=== PATIENT | female | born 1980 | race American Indian/Alaskan Native ===

== ENCOUNTER 2017-10-04 14:53 | Inpatient (IN) | payer MEDICARE, MEDICAID ==
[2017-10-04 15:10] VITALS: BMI 28.1
--- NOTE | 2017-10-04 15:32 | ED PDOC ---
Arrival/HPI - General Chief Complaint: Abdominal Pain Time Seen by Provider: 10/04/17 15:01 - History of Present Illness Narrative History of Present Illness (Text): 36 year old F c Past medical history cholecystectomy 2014, depression, bipolar disorder, schizophrenia p/w abdominal pain x 5 days. Associated with NBNB vomiting. Went to [facility] Emergency department yesterday, received IVF and pepcid. [place] well afterwards, discharged home, woke up this morning with same. Also reports diarrhea that resolved 2 days ago. 15 pound weight loss. Also reports chills, lightheadedness. No imaging performed. Denies fever, dyspnea, chest pain , cough. Past Medical History - Cardiac Hx Cardiac Disorders: No - Pulmonary Hx Respiratory Disorders: No - Neurological Hx Neurological Disorder: No - HEENT Hx HEENT Disorder: No - Renal Hx Renal Disorder: No - Endocrine/Metabolic Hx Endocrine Disorders: No - Hematological/Oncological Hx Blood Disorders: No - Integumentary Hx Dermatological Disorder: No - Musculoskeletal/Rheumatological Hx Musculoskeletal Disorders: No - Gastrointestinal Hx Gastrointestinal Disorders: No - Genitourinary/Gynecological Hx Genitourinary Disorders: No - Psychiatric Hx Psychophysiologic Disorder: Yes Hx Anxiety: Yes Hx Depression: Yes Hx Substance Use: No - Suicidal Assessment Feels Threatened In Home Enviroment: No Family/Social History Family/Social History: No Known Family HX Smoking Status: Never Smoked Hx Alcohol Use: No Hx Substance Use: No Allergies/Home Meds Allergies/Adverse Reactions: Allergies penicillin G Allergy (Severe, Verified 10/04/17 15:23) ANAPHYLAXIS Review of Systems - Physician Review All systems were reviewed & negative as marked: Yes - Review of Systems Constitutional: absent: Fevers Cardiovascular: absent: Chest Pain Physical Exam - Physical Exam Narrative Physical Exam (Text): Constitutional: No acute distress. Head: Normocephalic. Atraumatic. Eyes: PERRL. ENT: Moist mucous membranes. Neck: Supple. Cardiovascular: Regular rate. Chest: No tenderness. Respiratory: Clear to auscultation bilaterally. GI: BS present. Soft. Diffuse tenderness. No guarding or rebound. Nondistended. Back: No CVA tenderness. Musculoskeletal: No tenderness or swelling of extremities. Skin: No rash. Neurologic: Alert, no focal deficit. Vital Signs Temp Pulse Resp BP Pulse Ox 10/04/17 16:54 90 18 149/89 100 10/04/17 15:14 98.3 F 78 18 155/112 H 98 Medical Decision Making ED Course and Treatment: Differential includes appendicitis, colitis, gastritis, pancreatitis, UTI, gastroenteritis. CBC/CMP/lipase, Urinalysis, test, CT abdomen/pelvis. IVF, Pepcid, Maalox, Zofran. Labs unremarkable. Patient continues to have vomiting in Emergency department despite IV Zofran. Dr. Rankin accepts patient to observation under Dr. duncan's service. - Lab Interpretations Lab Results: 10/04/17 15:46 10/04/17 15:46 Lab Results 10/04/17 16:40: Urine Color Yellow, Urine Appearance Cloudy, Urine pH 6.0, Ur Specific [place] 1.025, Urine Protein 30 H, Urine Glucose (UA) Negative, Urine Ketones >=80, Urine Blood Large H, Urine Nitrate Negative, Urine Bilirubin Small H, Urine Urobilinogen 0.2, Ur Leukocyte Esterase Trace H, Urine RBC Tntc, Urine WBC 5 - 10, Ur Epithelial Cells 6 - 8, Urine Bacteria Mod, Urine Other Fiber, Urine HCG, Qual Negative 10/04/17 15:46: Sodium 141, Potassium 3.3 L, Chloride 100, Carbon Dioxide 26, Anion Gap 18, BUN 16, Creatinine 0.8, Est GFR ( Amer) > 60, Est GFR (Non- Af Amer) > 60, Random Glucose 97, Calcium 9.5, Total Bilirubin 0.7, AST 32, ALT 37, Alkaline Phosphatase 82, Total Protein 8.6 H, Albumin 4.6, Globulin 4.0, Albumin/Globulin Ratio 1.2, Lipase 108 10/04/17 15:46: WBC 4.8, RBC 4.47, Hgb 14.3, Hct 39.9, MCV 89.3, MCH 32.0, MCHC 35.8, RDW 11.4 L, Plt Count 294, MPV 9.4, Gran % 57.9, Lymph % (Auto) 35.2 H, [place] % (Auto) 6.3 H, Eos % (Auto) 0.2 L, Baso % (Auto) 0.4, Gran # 2.76, Lymph # (Auto) 1.7, [place] # (Auto) 0.3, Eos # (Auto) 0.0, Baso # (Auto) 0.02 - RAD Interpretation Radiology Orders: 10/04/17 15:34 ABD & PELVIS IV CONTRAST ONLY [CT] Stat - Medication Orders Current Medication Orders: Sodium Chloride (Sodium Chloride 0.9%) 1,000 mls @ 999 mls/hr IV .Q1H1M STA Stop: 10/04/17 19:45 Discontinued Medications Al Hydrox/Mg Hydrox/Simethicone (Maalox Plus 30 Ml) 30 ml PO STAT STA Stop: 10/04/17 15:35 Last Admin: 10/04/17 16:47 Dose: 30 ml Famotidine (Pepcid) 20 mg IVP STAT STA Stop: 10/04/17 15:35 Last Admin: 10/04/17 16:46 Dose: 20 mg IVP Administration Document 10/04/17 16:46 [facility] (Rec: 10/04/17 16:47 [facility] [id number]) Charges for Administration # of IVP Administrations 1 Sodium Chloride (Sodium Chloride 0.9%) 1,000 mls @ 999 mls/hr IV .Q1H1M STA Stop: 10/04/17 16:34 Last Admin: 10/04/17 16:46 Dose: 999 mls/hr eMAR Start Stop Document 10/04/17 16:46 [facility] (Rec: 10/04/17 16:46 LM [id number]) Intravenous Solution Start Date 10/04/17 Start Time 16:46 End Date 10/04/17 End time 17:47 Total Infusion Time 61 Ondansetron HCl (Zofran Inj) 8 mg IVP STAT STA Stop: 10/04/17 15:35 Last Admin: 10/04/17 16:47 Dose: 8 mg IVP Administration Document 10/04/17 16:47 [facility] (Rec: 10/04/17 16:47 [facility] [id number]) Charges for Administration # of IVP Administrations 1 Ondansetron HCl (Zofran Inj) 8 mg IVP STAT STA Stop: 10/04/17 18:46 Disposition/Present on Arrival - Present on Arrival Any Indicators Present on Arrival: No History of DVT/PE: No History of Uncontrolled Diabetes: No Urinary Catheter: No History of Decub. Ulcer: No History Surgical Site Infection Following: None - Disposition Have Diagnosis and Disposition been Completed?: Yes Diagnosis: Intractable vomiting Disposition: HOSPITALIZED Disposition Time: 18:30 Patient Plan: Observation Condition: FAIR
[2017-10-04] MEDS ORDERED: Alum-Mag Hydrox-Simethicone Susp (30 mL) PO STA (15:34)
[2017-10-04] MEDS ORDERED: Sodium Chloride 0.9% 1,000 ML IV STA ×2 (15:34→18:45)
[2017-10-04] MEDS ORDERED: Iohexol 350 MG/100 ML VIAL ONE (15:41)
[2017-10-04 15:56] LABS: BASO # 0.02 K/mm3 (0.0-2.0); BASO % 0.4 % (0.0-3.0); EOS % 0.2 % (1.5-5.0); GRAN # 2.76 (1.4-6.5); GRAN % 57.9 % (50.0-68.0); HEMOGLOBIN 14.3 g/dL (12.0-16.0); LYMPH # 1.7 (1.2-3.4); LYMPH % 35.2 % (22.0-35.0); MEAN CELL VOLUME 89.3 fl (80.0-105.0); MEAN CORPUSCULAR HGB CONC 35.8 g/dl (31.0-37.0); MEAN PLATELET VOLUME 9.4 fl (7.0-11.0); MONO # 0.3 (0.1-0.6); MONO % 6.3 % (1.0-6.0); RBC 4.47 10^6/uL (3.5-6.1); RED CELL DISTRIBUTION WIDTH 11.4 % (11.5-14.5); WHITE BLOOD COUNT 4.8 10^3/ul (4.5-11.0)
[2017-10-04 16:00] LABS: ALB/GLOB RATIO 1.2 (1.1-1.8); ALBUMIN 4.6 g/dL (3.0-4.8); ALT/SGPT 37 U/L (7-56); AST/SGOT 32 U/L (14-36); BLOOD UREA NITROGEN 16 mg/dL (7-21); CALCIUM 9.5 mg/dL (8.4-10.5); GFR AFRICAN-AMERICAN > 60; GFR NON-AFRICAN AMERICAN > 60; LIPASE 108 U/L (23-300)
[2017-10-04 17:09] LABS: URINE BILIRUBIN SMALL (NEGATIVE); URINE BLOOD LARGE (NEGATIVE); URINE GLUCOSE (UA) NEGATIVE (NEGATIVE); URINE LEUKOCYTE ESTERASE TRACE Leu/uL (NEGATIVE); URINE PROTEIN 30 mg/dL (<30 mg/dL); URINE UROBILINOGEN 0.2 E.U./dL (<1 E.U./dL)
[2017-10-04 17:14] LABS: URINE APPEARANCE CLOUDY (CLEAR); URINE COLOR YELLOW (YELLOW)
[2017-10-04 17:27] LABS: HCG,QUALITATIVE URINE NEGATIVE (NEGATIVE); URINE BACTERIA MOD (NEG); URINE RBC TNTC /hpf (0-2)
--- NOTE | 2017-10-04 17:40 | CT ---
PROCEDURE: CT Abdomen and Pelvis with contrast HISTORY: Abdominal pain and vomiting. COMPARISON: None. TECHNIQUE: Contrast dose: 100 cc Omnipaque 350. Radiation dose: Total exam DLP = 1210.10 mGy-cm. This CT exam was performed using one or more of the following dose reduction techniques: Automated exposure control, adjustment of the mA and/or kV according to patient size, and/or use of iterative reconstruction technique. FINDINGS: LOWER THORAX: Small hiatal hernia. LIVER: Hepatic steatosis. No focal masses. No intrahepatic bile duct dilatation or perihepatic ascites. GALLBLADDER AND BILE DUCTS: Status post cholecystectomy. No abnormality is seen in the gallbladder fossa. PANCREAS: Unremarkable. No gross lesion or ductal dilatation. SPLEEN: Unremarkable. ADRENALS: Unremarkable. No mass. KIDNEYS AND URETERS: Unremarkable. No hydronephrosis. No solid mass. VASCULATURE: Unremarkable. No aortic aneurysm. BOWEL: Unremarkable. No obstruction. No gross mural thickening. APPENDIX: Innumerable appendicular was. No abnormalities to suggest acute appendicitis. No right lower quadrant inflammatory processes identified. PERITONEUM: Trace free fluid identified in the pelvis/cul de sac. LYMPH NODES: Unremarkable. No enlarged lymph nodes. BLADDER: Unremarkable. REPRODUCTIVE: Small left adnexal cysts. BONES: No acute fracture. OTHER FINDINGS: None. IMPRESSION: No acute findings related to/accounting for the clinical presentation. Additional benign and/or incidental findings described above.
[2017-10-04] MEDS ORDERED: Alum-Mag Hydrox-Simethicone Susp (30 mL) PO PRN (20:13)
[2017-10-04] MEDS ORDERED: Potassium Chloride 20 mEq ER Tab PO STA (22:11)
[2017-10-04] MEDS: Morphine 4 mg/ml ISec IVP PRN (23:00)
--- NOTE | 2017-10-04 23:26 | HP ---
HISTORY OF PRESENT ILLNESS: The patient is seen in the emergency room. She had presented with abdominal pain and vomiting. Patient has no history of fever. Patient has a significant past history of bipolar disorder, depression and schizophrenia. Patient has been taking treatment for this mental illness for a period of time. She has been seen in the emergency room at a medical center 24 hours ago; however, she is a 36-year-old female, she is evaluated in the emergency room. She seems to be writhing in pain. The pain seemed to be in the epigastric area and the patient said that she has pain that is severe and that she wants something for the pain but she refuses to have any nasogastric tube inserted. PAST SURGICAL HISTORY: Patient has a past history of cholecystectomy. PAST MEDICAL HISTORY: Patient has a past history of gastritis and patient has history of behavioral disorder. SOCIAL HISTORY: No history of addiction, alcohol or substance abuse. PHYSICAL EXAMINATION: GENERAL: Patient is conscious, writhing in discomfort. VITAL SIGNS: The pulse is 90, blood pressure 150/90, patient's respirations are 18, O2 sat 100% on room air. HEENT: The patient's head is normocephalic. NECK: The thyroid is not enlarged. JVP is flat. LUNGS: Trachea is central. Breath sounds are vesicular. No adventitious sounds. HEART: Normal sinus rhythm. S1, S2 present. Patient has sinus tachycardia. ABDOMEN: Soft. There is some minimal epigastric discomfort, but no distention. Peristalsis is present. No masses. CENTRAL NERVOUS SYSTEM: The patient is conscious, rational, answers all questions. She is oriented and she is in discomfort and she wants treatment to help her pain. The patient is being evaluated in the emergency room and the emergency room physician is considering in giving her some sedation. LABORATORY DATA: Patient's lab work done in the hospital. The white count is 4800, differential shows 57% to 60% granulocytes, platelet count within normal limits. Chemistry: Patient's sugar is 97. Patient's total protein 8.6, lipase 108, and patient's urinalysis has evidence of large amount of blood in the urine possibly related to menstrual cycle. Patient has some amount of protein in the urine also, not diagnosable. Patient's x-ray was ordered. Patient has CAT scan of the abdomen done. There is no evidence of any hepatic masses. There is some fatty liver. Patient has small hiatus hernia and the patient does not have a gallbladder and that shows in the CAT scan. The urinary bladder is unremarkable. PLAN: Patient is going to be admitted for abdominal pain and symptomatic vomiting. Patient is going to be on IV fluids. We are going to give the patient pain medication and also sedation with Ativan and we will follow up with the crusher loader equipment operator evaluating the patient. Buster Vera MD
[2017-10-05] MEDS: Dextrose 5%/0.45% NS 1,000 ML IV SCH ×2 (00:28→14:07)
[2017-10-05] MEDS: Morphine 4 mg/ml ISec IVP PRN ×4 (02:50→21:08)
[2017-10-05 07:10] LABS: BASO # 0.01 K/mm3 (0.0-2.0); BASO % 0.2 % (0.0-3.0); EOS % 0.6 % (1.5-5.0); GRAN # 1.99 (1.4-6.5); GRAN % 38.9 % (50.0-68.0); HEMOGLOBIN 12.4 g/dL (12.0-16.0); LYMPH # 2.7 (1.2-3.4); LYMPH % 52.7 % (22.0-35.0); MEAN CELL VOLUME 89.2 fl (80.0-105.0); MEAN CORPUSCULAR HEMOGLOBIN 31.2 pg (25.0-35.0); MEAN PLATELET VOLUME 9.4 fl (7.0-11.0); MONO # 0.4 (0.1-0.6); MONO % 7.6 % (1.0-6.0); RBC 3.97 10^6/uL (3.5-6.1); RED CELL DISTRIBUTION WIDTH 11.5 % (11.5-14.5); WHITE BLOOD COUNT 5.1 10^3/ul (4.5-11.0)
[2017-10-05 07:20] LABS: ALB/GLOB RATIO 1.1 (1.1-1.8); ALBUMIN 3.9 g/dL (3.0-4.8); ALT/SGPT 35 U/L (7-56); AST/SGOT 30 U/L (14-36); BLOOD UREA NITROGEN 9 mg/dL (7-21); CALCIUM 8.9 mg/dL (8.4-10.5); GFR AFRICAN-AMERICAN > 60; GFR NON-AFRICAN AMERICAN > 60
[2017-10-05] MEDS ORDERED: Potassium Chloride 20 mEq ER Tab PO STA (08:39)
[2017-10-05] MEDS ORDERED: Morphine 4 mg/ml ISec IVP PRN (09:21)
--- NOTE | 2017-10-05 11:35 | CP.PCM.HP ---
History of Present Illness - History of Present Illness History of Present Illness: Medicine H&P: Dr. Altamirano Chief Complaint: Intractible Nausea and Vomiting HPI: 36 year old female with past medical history of depression, bipolar disorder, and schizophrenia presents with 5 days of abdominal pain associated with nbnb vomiting. Patient also had diarrhea which resolved 2 days ago. Patient states that this has happened to her before. Patient denies hematochezia or hematemesis, but admits to nausea. Patient has not had recent illness and denies fevers and chills. Review of Systems: 12 point ROS obtained and negative except as per HPI Surgical history: Cholecystectomy Medical history: BPD, Depression Allergies: PCN G Social history: No tobacco, no alcohol, no illicits Home meds: Reviewed, see MAR Family history: Non-contributory PMD: Dr. Campos Present on Admission - Present on Admission Any Indicators Present on Admission: No Past Patient History - Past Social History Smoking Status: Never Smoked - CARDIAC Hx Cardiac Disorders: No - PULMONARY Hx Respiratory Disorders: No - NEUROLOGICAL Hx Neurological Disorder: No - HEENT Hx HEENT Problems: No - RENAL Hx Chronic Kidney Disease: No - ENDOCRINE/METABOLIC Hx Endocrine Disorders: No - HEMATOLOGICAL/ONCOLOGICAL Hx Blood Disorders: No - INTEGUMENTARY Hx Dermatological Problems: No - MUSCULOSKELETAL/RHEUMATOLOGICAL Hx Musculoskeletal Disorders: No Hx Falls: No - GASTROINTESTINAL Hx Gastrointestinal Disorders: No - GENITOURINARY/GYNECOLOGICAL Hx Genitourinary Disorders: No - PSYCHIATRIC Hx Psychophysiologic Disorder: Yes Hx Anxiety: Yes Hx Depression: Yes - SURGICAL HISTORY Hx Surgeries: No Hx Cholecystectomy: Yes (2003) Meds Allergies/Adverse Reactions: Allergies Allergy/AdvReac Type Severity Reaction Status Date / Time penicillin G Allergy Severe ANAPHYLAXIS Verified 10/04/17 15:23 Physical Exam - Constitutional Appears: Well - Head Exam Head Exam: ATRAUMATIC, NORMAL INSPECTION, NORMOCEPHALIC - Eye Exam Eye Exam: EOMI, Normal appearance, PERRL Pupil Exam: NORMAL ACCOMODATION, PERRL - ENT Exam ENT Exam: Mucous Membranes Moist, Normal Exam - Neck Exam Neck exam: Positive for: Normal Inspection - Respiratory Exam Respiratory Exam: Clear to Auscultation Bilateral, NORMAL BREATHING PATTERN - Cardiovascular Exam Cardiovascular Exam: REGULAR RHYTHM - GI/Abdominal Exam GI & Abdominal Exam: Normal Bowel Sounds, Soft. absent: Tenderness Additional comments: Patient has diffuse tenderness to palpation - Extremities Exam Extremities exam: Positive for: normal inspection - Back Exam Back exam: NORMAL INSPECTION - Neurological Exam Neurological exam: Alert, CN II-XII Intact, Normal Gait, Oriented x3, Reflexes Normal - Psychiatric Exam Psychiatric exam: Normal Affect, Normal Mood - Skin Skin Exam: Dry, Intact, Normal Color, Warm Results - Vital Signs Recent Vital Signs: Last Vital Signs Temp 98.5 F 10/05/17 11:25 Pulse 77 10/05/17 11:25 Resp 18 10/05/17 11:25 BP 175/120 H 10/05/17 11:25 Pulse Ox 100 10/05/17 11:25 - Labs Result Diagrams: 10/05/17 06:20 10/05/17 06:20 Labs: Laboratory Results - last 24 hr 10/05/17 10/05/17 10/05/17 06:20 06:20 06:20 WBC 5.1 RBC 3.97 Hgb 12.4 Hct 35.4 L MCV 89.2 MCH 31.2 MCHC 35.0 RDW 11.5 Plt Count 274 MPV 9.4 Gran % 38.9 L Lymph % (Auto) 52.7 H [place] % (Auto) 7.6 H Eos % (Auto) 0.6 L Baso % (Auto) 0.2 Gran # 1.99 Lymph # (Auto) 2.7 [place] # (Auto) 0.4 Eos # (Auto) 0.0 Baso # (Auto) 0.01 Sodium 141 Potassium 3.0 L Chloride 104 Carbon Dioxide 26 Anion Gap 14 BUN 9 Creatinine 0.8 Est GFR ( Amer) > 60 Est GFR (Non-Af Amer) > 60 Random Glucose 98 Calcium 8.9 Magnesium 1.8 Total Bilirubin 0.6 AST 30 ALT 35 Alkaline Phosphatase 66 Total Protein 7.4 Albumin 3.9 Globulin 3.5 Albumin/Globulin Ratio 1.1 Assessment & Plan - Assessment and Plan (Free Text) Assessment: 36 year old female with past medical history with no pertinent past medical history is presenting with abdominal pain and associated intractable nausea and vomiting. Patient was hypokalemic on admission, but magnesium was normal. UA showed trace leukocyte esterase. Patient afebrile with no other SIRS criteria. Patient also hypertensive, with uptrending blood pressures. Abdominal Pain - Tapering Morphine dose Intractible Nausea Vomiting - Reglan, Maalox, Zofran, Protonix - Replenish potassium UTI - Macrobid - Await urine culture Hypokalemia likely 2/2 vomiting - Replenished, monitor potassium History of Bipolar Disease, Schizophrenia - Psych on consult GI/DVT Prophylaxis - Protonix/SCD's - Patient out of bed as tolerated
--- NOTE | 2017-10-05 13:41 | CP.PCM.PN ---
Subjective - Date & Time of Evaluation Date of Evaluation: 10/05/17 Time of Evaluation: 08:00 - Subjective Subjective: Medicine progress note: Dr. Altamirano Patient seen and examined at bedside. Patient still having bouts of nausea vomiting. No other complaints. Objective - Vital Signs/Intake and Output Vital Signs (last 24 hours): Temp Pulse Resp BP Pulse Ox 98.5 F 77 18 175/120 H 100 10/05/17 11:25 10/05/17 11:25 10/05/17 11:25 10/05/17 11:25 10/05/17 11:25 - Medications Medications: Current Medications Al Hydrox/Mg Hydrox/Simethicone (Maalox Plus 30 Ml) 30 ml PO Q12H PRN PRN Reason: Dyspepsia Dextrose/Sodium Chloride (Dextrose 5%/0.45% Ns 1000 Ml) 1,000 mls @ 100 mls/hr IV .Q10H CONRAD Last Admin: 10/05/17 00:28 Dose: 100 mls/hr Lorazepam (Ativan) 1 mg IVP TID PRN; Protocol PRN Reason: Anxiety Metoclopramide HCl (Reglan) 10 mg IVP Q6H CONRAD Last Admin: 10/05/17 12:35 Dose: 10 mg Morphine Sulfate (Morphine) 1 mg IVP Q8H PRN PRN Reason: Pain, severe (8-10) Last Admin: 10/05/17 12:40 Dose: 1 mg Nitrofurantoin Macrocrystals (Macrobid) 100 mg PO Q12 CONRAD PRN Reason: Protocol Last Admin: 10/05/17 09:56 Dose: 100 mg Ondansetron HCl (Zofran Inj) 4 mg IVP Q4H PRN PRN Reason: Nausea/Vomiting Last Admin: 10/05/17 06:50 Dose: 4 mg Pantoprazole Sodium (Protonix Inj) 40 mg IVP Q12H CONRAD Last Admin: 10/05/17 09:56 Dose: 40 mg - Labs Labs: 10/05/17 06:20 10/05/17 06:20 - Constitutional Appears: Well - Head Exam Head Exam: ATRAUMATIC, NORMAL INSPECTION, NORMOCEPHALIC - Eye Exam Eye Exam: EOMI, Normal appearance, PERRL Pupil Exam: NORMAL ACCOMODATION, PERRL - ENT Exam ENT Exam: Mucous Membranes Moist, Normal Exam - Neck Exam Neck Exam: Full ROM, Normal Inspection. absent: Lymphadenopathy - Respiratory Exam Respiratory Exam: Clear to Ausculation Bilateral, NORMAL BREATHING PATTERN - Cardiovascular Exam Cardiovascular Exam: REGULAR RHYTHM, +S1, +S2. absent: Murmur - GI/Abdominal Exam GI & Abdominal Exam: Soft, Normal Bowel Sounds. absent: Tenderness Additional comments: Diffuse tenderness to palpation - Extremities Exam Extremities Exam: Full ROM, Normal Capillary Refill, Normal Inspection. absent : Joint Swelling, Pedal Edema - Back Exam Back Exam: NORMAL INSPECTION - Neurological Exam Neurological Exam: Alert, Awake, CN II-XII Intact, Normal Gait, Oriented x3 - Psychiatric Exam Psychiatric exam: Normal Affect, Normal Mood - Skin Skin Exam: Dry, Intact, Normal Color, Warm Assessment and Plan - Assessment and Plan (Free Text) Assessment: 36 year old female with past medical history with no pertinent past medical history is presenting with abdominal pain and associated intractable nausea and vomiting. Patient was hypokalemic on admission, but magnesium was normal. UA showed trace leukocyte esterase. Patient afebrile with no other SIRS criteria. Patient also hypertensive, with uptrending blood pressures. Patient's diastolic blood pressure meets criteria for hypertensive urgency, but patient not having end organ damage. Plan: Abdominal Pain - Tapering Morphine dose Intractible Nausea Vomiting - Reglan, Maalox, Zofran, Protonix - Replenish potassium Hypertensive Urgency - Start Norvasc for first line UTI - Macrobid - Await urine culture Hypokalemia likely 2/2 vomiting - Replenished, monitor potassium History of Bipolar Disease, Schizophrenia - Psych on consult GI/DVT Prophylaxis - Protonix/SCD's - Patient out of bed as tolerated
[2017-10-05 13:55] LABS: BARBITURATES, UR NEGATIVE (NEGATIVE); BENZODIAZEPINES, UR POSITIVE (NEGATIVE); OPIATES, UR POSITIVE (NEGATIVE); PHENCYCLIDINE, UR NEGATIVE (NEGATIVE)
--- NOTE | 2017-10-05 16:50 | CON ---
DATE: 10/05/2017 GASTROENTEROLOGY CONSULTATION REQUESTING PHYSICIAN: Dr. Vera. REASON FOR CONSULT: I have been asked to see this 36-year-old female with a history of bipolar disorder, schizophrenia with 5 days of midabdominal pain associated with nausea and vomiting. The patient did have several bouts of diarrhea with her last episode being 2 days ago. The patient had an endoscopy many many years ago. She also has had a cholecystectomy. She denies any hematemesis, fevers, chills, melena or rectal bleeding. PAST MEDICAL HISTORY: Notable for bipolar disorder and depression. PAST SURGICAL HISTORY: Notable for cholecystectomy. SOCIAL HISTORY: She denies cigarette smoking or alcohol use. FAMILY HISTORY: Noncontributory. REVIEW OF SYSTEMS: Fourteen-point review of systems is notable for abdominal pain, nausea and vomiting. MEDICATIONS AT HOME: Unknown. PHYSICAL EXAMINATION: GENERAL: Well-developed female, lying in bed, in no acute distress. VITAL SIGNS: Reveal temperature of 98.5, blood pressure 170/120, heart rate of 77. HEENT: Reveals sclerae to be white. Conjunctivae pink. NECK: Supple. CHEST: Lungs are clear. HEART: Reveals regular rate and rhythm. ABDOMEN: Soft. Mild diffuse tenderness. No rebound. No guarding. EXTREMITIES: Show no edema. LABORATORY DATA: Revealed white blood cell count 5.1, hemoglobin 12.4. Tox screen is positive for opiates and cannabis as well as benzodiazepines. Chemistries reveal potassium of 3. AST, ALT, alk phos normal. IMPRESSION: A 36-year-old female with several days of abdominal pain, nausea and vomiting. Her tox screen is positive for opiates, cannabinoids and benzodiazepines. Etiology of the abdominal pain is unclear. Her CT scan of the abdomen and pelvis was negative for any acute findings. RECOMMENDATIONS: 1. I will schedule the patient for an upper endoscopy for the morning. 2. Continue IV pantoprazole and clear liquid diet. Jorje Lees MD
--- NOTE | 2017-10-05 17:47 | CT ---
PROCEDURE: CT HEAD WITHOUT CONTRAST. HISTORY: Intractable vomiting COMPARISON: None available. TECHNIQUE: Axial computed tomography images were obtained through the head/brain without intravenous contrast. Coronal and sagittal reconstructed images. Radiation dose: Total exam DLP = 92.85 mGy-cm. This CT exam was performed using one or more of the following dose reduction techniques: Automated exposure control, adjustment of the mA and/or kV according to patient size, and/or use of iterative reconstruction technique. FINDINGS: HEMORRHAGE: No intracranial hemorrhage. BRAIN: No mass effect or edema. No atrophy or chronic microvascular ischemic changes. VENTRICLES: Unremarkable. No hydrocephalus. CALVARIUM: Unremarkable. PARANASAL SINUSES: Unremarkable as visualized. No significant inflammatory changes. MASTOID AIR CELLS: Unremarkable as visualized. No inflammatory changes. OTHER FINDINGS: None. IMPRESSION: No acute intracranial abnormalities. No significant findings to account for the clinical presentation.
[2017-10-05] MEDS ORDERED: Dextrose 5%/0.45% NS 1,000 ML IV SCH (21:30)
--- NOTE | 2017-10-06 00:38 | PN ---
DATE: 10/05/2017 LOCATION: Patient is seen in room 551, bed 2. SUBJECTIVE: Patient was seen lying in the bed comfortably watching TV. Patient did complain of some abdominal pain overnight. Patient was given pain medication. Patient stated that patient's last nausea, vomiting was yesterday. Patient denies any abdominal pain at present. Patient denies any nausea, vomiting at present. OBJECTIVE: VITAL SIGNS: T-max 98.5. Heart rate 77, 75, 78. Patient was seen around 9 to 9:30 a.m. Patient's blood pressure is 157/103, 149/89. Respirations 18. O2 sat 100%. HEENT: Head: Normocephalic, atraumatic. HEENT: Shows pink conjunctivae, anicteric sclerae, dry oral mucosa. NECK: No neck rigidity. CHEST: Symmetrical. LUNGS: Shows no rales, crackles, or wheezing. CARDIOVASCULAR: Shows S1, S2, regular rhythm. ABDOMEN: Soft. No appreciable right and left upper and lower quadrant tenderness noted. No guarding noted. No costovertebral angle tenderness. No rebound tenderness. No epigastric periumbilical tenderness noted. GENITALIA: Female. RECTAL: Deferred. EXTREMITY: Shows no pitting edema, no calf numbness, no Homans' sign. NEUROLOGIC: Patient is alert, awake, oriented x3. Cranial nerves II through XII limited. Gait examination is not tested. MUSCULOSKELETAL: Shows a body mass index of 28.1. PSYCHIATRIC: Positive for bipolar disorder and positive for anxiety and depression. DIAGNOSTIC STUDIES: CBC shows WBC 5.1, hemoglobin/hematocrit 12.4/35.4, platelet 274. Chemistry is significant for potassium of 3.0, magnesium 1.8. LFTs are normal. Urinalysis noted. Urine drug screen shows positive opiates, positive benzos, positive cannabinoids. CAT scan of the abdomen and pelvis noted. Patient had a CT of the head because of uncontrolled hypertension and an elevated high blood pressure, which was reviewed. IMPRESSION: 1. Questionable intractable nausea and vomiting (resolving). 2. Questionable uncontrolled hypertension versus hypertensive urgency. 3. Possible marijuana-induced hyperemesis syndrome. 4. Questionable lymphocytosis. 5. Hypokalemia. 6. Urine drug screen positive for opiates, positive for benzodiazepine, and positive for marijuana. 7. Small hiatal hernia. 8. Hepatic steatosis. 9. Status post cholecystectomy. 10. Left adnexal small cyst. 11. History of bipolar disorder, anxiety, and depression. 12. Abdominal pain with nausea and vomiting. 13. Questionable possible cannabinoid use and marijuana dependence. 14. Questionable urinary tract infection with proteinuria, microscopic hematuria, pyuria, bacteriuria. PLAN: At this time, patient has been ordered repeat CMP, LFT, magnesium. Urine cultures are pending. CURRENT CONSULTATIONS: Gastroenterology and Psychiatry. CURRENT MEDICATIONS: Patient was given a dose of hydralazine 10 mg IV stat with positive response of the blood pressure coming down to 127/93 from 175/120 and 175/123. Patient is on Ativan 1 mg IV push three times a day p.r.n. Patient is started on clonidine 0.1 mg every 8 hour. Patient is also started on Cogentin 0.5 mg a.m. and at bedtime. Patient's IV fluid was changed to D5 half normal saline at 60 mL a hour. Patient was started on Haldol 10 mg a.m. and at bedtime. Patient is given potassium riders 20 mEq IV x2. Patient is on Protonix 40 IV every 12, Reglan 10 mg IV every 6. Patient is started on Sonata 5 mg at bedtime p.r.n. and Xanax 2 mg twice a day p.r.n. Patient is on Zofran 4 mg IV every 4. Patient is started on liquid diet. Patient has been kept n.p.o. past midnight for endoscopy in a.m. by Dr. Lees. Patient has been updated about the details of her medical condition, diagnoses, need for further diagnostic therapeutic intervention, need for Gastroenterology, Psychiatry evaluation and management. Recommendation was discussed and explained to the patient at length. The patient has been advised out of bed to chair, ambulate ad ziyad. Patient has been ordered JENNYFER stockings. Patient has been ordered occupational therapy, physical therapy, ambulation therapy, gait training. At present, patient was seen by Gastroenterology, Psychiatry. Their medications and therapeutic interventions were noted. Dictated and electronically signed, not read. Dao Altamirano MD
--- NOTE | 2017-10-06 01:53 | CON ---
DATE: HISTORY OF PRESENT ILLNESS: In short, the patient is a 36-year-old -Maced[place] female with history of depression, bipolar disorder, possible schizophrenia, most likely the patient has schizoaffective disorder. The patient was admitted on the medical side for evaluation of abdominal pain, nausea and vomiting and fever. Psych consult was called for evaluation of medications and the patient has history of mental illness. The patient also was hearing voices and seeing things. The patient was seen and examined today on the medical site. The patient presented to be pleasant. At the same time, the patient does not feel comfortable because of the abdominal pain and active vomiting. The patient was able to hold the interview. The patient reported that she was compliant with the medications and she is seeing psychiatrist at [facility] The patient reported that her appointment is supposed to be tomorrow, but she will be not able to hold that appointment. The patient reported that all medications she remembers is Xanax, but does not remember the rest of the medications. The patient said that she filled her prescription at [facility] at [address] [place] [address]. [facility] was called, phone number is [phone]. The patient was taking haloperidol 10 mg at the morning time and 15 mg at the nighttime. The patient filled that medication in July. The patient also was on Cogentin 0.5 mg twice a day. Last time filled in July. The patient also was on Xanax. Last time, she filled in August 2 mg twice a day and the patient was on Zofran. The patient reported that she liked that combination of the medications, but the patient most likely was noncompliant with the medication because last time she filled the medication was on July. So, urine drug screen was positive for benzodiazepines, cannabis and opioids. PHYSICAL EXAMINATION: VITAL SIGNS: Seems to be stable, but blood pressure is elevated. Temperature 98.5, pulse is 78, blood pressure 170/120, respirations 18. MEDICATIONS: Reviewed. The patient is on Norvasc, Catapres, Ativan 1 mg IV push three times a day as needed. Also, the patient is on Reglan, morphine. The patient is on Macrobid, Zofran, Protonix. LABORATORY DATA: Hematology reviewed. Chemistry reviewed. Urinalysis showed leukocyte esterase positive and possible urinary tract infection. Toxicology positive for opioids as well as benzodiazepines as well as for cannabis. Microbiology is not back yet. MENTAL STATUS EXAMINATION: The patient presented to be alert, pleasant, cooperative, but seems to be unreliable historian because the patient said that she was compliant with the medication, but last time she filled the medication was in July Haldol as well as Cogentin. Xanax was filled on 09/06/2017. Most likely, the patient was compliant with that medication. As per patient's request, we will resume haloperidol, Cogentin and Xanax. We will follow up and advise accordingly. Thank you very much for letting me participate in care of your patient. Should you have any questions, give me a call back. We will see if the patient requires further hospitalization. Tanya Shah MD MTDD
[2017-10-06 07:35] LABS: ALB/GLOB RATIO 1.1 (1.1-1.8); ALBUMIN 3.6 g/dL (3.0-4.8); ALT/SGPT 38 U/L (7-56); AST/SGOT 20 U/L (14-36); BILIRUBIN,DIRECT 0.1 mg/dL (0.0-0.4); BLOOD UREA NITROGEN 5 mg/dL (7-21); CALCIUM 9.2 mg/dL (8.4-10.5); GFR AFRICAN-AMERICAN > 60; GFR NON-AFRICAN AMERICAN > 60
[2017-10-06 08:14] LABS: BASO # 0.02 K/mm3 (0.0-2.0); BASO % 0.4 % (0.0-3.0); EOS % 0.6 % (1.5-5.0); GRAN # 1.18 (1.4-6.5); GRAN % 25.6 % (50.0-68.0); HEMOGLOBIN 12.6 g/dL (12.0-16.0); LYMPH % 65.2 % (22.0-35.0); MEAN CELL VOLUME 89.8 fl (80.0-105.0); MEAN CORPUSCULAR HEMOGLOBIN 32.1 pg (25.0-35.0); MEAN CORPUSCULAR HGB CONC 35.7 g/dl (31.0-37.0); MEAN PLATELET VOLUME 9.7 fl (7.0-11.0); MONO # 0.4 (0.1-0.6); MONO % 8.2 % (1.0-6.0); RBC 3.93 10^6/uL (3.5-6.1); RED CELL DISTRIBUTION WIDTH 11.6 % (11.5-14.5); WHITE BLOOD COUNT 4.6 10^3/ul (4.5-11.0)
[2017-10-06] MEDS ORDERED: Potassium Chloride 20 mEq ER Tab PO ONE (09:11)
[2017-10-06 09:47] VITALS: TEMP 98.1
[2017-10-06] MEDS ORDERED: Propofol 10 mg/ml Inj (20 ML) ONE (09:49)
[2017-10-06] MEDS ORDERED: Sodium Chloride 0.9% 1,000 ML IV SCH (10:00)
[2017-10-06] MEDS ORDERED: Magnesium Oxide 400 mg Tab UD PO SCH (10:00)
[2017-10-06 10:18] VITALS: RESP 15; O2SAT 99
--- NOTE | 2017-10-06 10:49 | CP.PCM.PCO ---
Addendum Addendum: 10/06/17 10:47 pt was at endoscopy procedure when this marine underwriter rounded on the medical floor. please see initial evaluation report from yesterday pt's pharmacy was contacted, meds were discussed with pt, but pt refused to take meds over night saying that she never being on Haldol despite the fact that it was confirmed and discussed with pt yesterday. besides that no acute issues, will f/u and advised accordingly thx
--- NOTE | 2017-10-06 11:24 | CP.PCM.DIS ---
Provider - Provider Date of Admission: 10/05/17 16:31 Attending physician: Dao Altamirano MD Consults: Psych - Dr. Martínez GI - Dr. Lees Time Spent in preparation of Discharge (in minutes): 35 Hospital Course - Lab Results Lab Results: Most Recent Lab Values WBC 4.6 10^3/ul (4.5-11.0) 10/06/17 07:43 RBC 3.93 10^6/uL (3.5-6.1) 10/06/17 07:43 Hgb 12.6 g/dL (12.0-16.0) 10/06/17 07:43 Hct 35.3 % (36.0-48.0) L 10/06/17 07:43 MCV 89.8 fl (80.0-105.0) 10/06/17 07:43 MCH 32.1 pg (25.0-35.0) 10/06/17 07:43 MCHC 35.7 g/dl (31.0-37.0) 10/06/17 07:43 RDW 11.6 % (11.5-14.5) 10/06/17 07:43 Plt Count 244 10^3/uL (120.0-450.0) 10/06/17 07:43 MPV 9.7 fl (7.0-11.0) 10/06/17 07:43 Gran % 25.6 % (50.0-68.0) L 10/06/17 07:43 Lymph % (Auto) 65.2 % (22.0-35.0) H 10/06/17 07:43 Miner % (Auto) 8.2 % (1.0-6.0) H 10/06/17 07:43 Eos % (Auto) 0.6 % (1.5-5.0) L 10/06/17 07:43 Baso % (Auto) 0.4 % (0.0-3.0) 10/06/17 07:43 Gran # 1.18 (1.4-6.5) L 10/06/17 07:43 Lymph # (Auto) 3.0 (1.2-3.4) 10/06/17 07:43 Miner # (Auto) 0.4 (0.1-0.6) 10/06/17 07:43 Eos # (Auto) 0.0 (0.0-0.7) 10/06/17 07:43 Baso # (Auto) 0.02 K/mm3 (0.0-2.0) 10/06/17 07:43 Sodium 140 mmol/L (132-148) 10/06/17 06:45 Potassium 3.6 mmol/L (3.6-5.0) 10/06/17 06:45 Chloride 105 mmol/L (98-107) 10/06/17 06:45 Carbon Dioxide 27 mmol/L (21-33) 10/06/17 06:45 Anion Gap 11 (10-20) 10/06/17 06:45 BUN 5 mg/dL (7-21) L 10/06/17 06:45 Creatinine 0.8 mg/dl (0.7-1.2) 10/06/17 06:45 Est GFR ( Amer) > 60 10/06/17 06:45 Est GFR (Non-Af Amer) > 60 10/06/17 06:45 Random Glucose 92 mg/dL (70-110) 10/06/17 06:45 Calcium 9.2 mg/dL (8.4-10.5) 10/06/17 06:45 Phosphorus 2.6 mg/dL (2.5-4.5) 10/06/17 06:45 Magnesium 1.7 mg/dL (1.7-2.2) 10/06/17 06:45 Total Bilirubin 0.6 mg/dL (0.2-1.3) 10/06/17 06:45 Direct Bilirubin 0.1 mg/dL (0.0-0.4) 10/06/17 06:45 AST 20 U/L (14-36) 10/06/17 06:45 ALT 38 U/L (7-56) 10/06/17 06:45 Alkaline Phosphatase 56 U/L (38-126) 10/06/17 06:45 Total Protein 6.8 g/dL (5.8-8.3) 10/06/17 06:45 Albumin 3.6 g/dL (3.0-4.8) 10/06/17 06:45 Globulin 3.2 gm/dL 10/06/17 06:45 Albumin/Globulin Ratio 1.1 (1.1-1.8) 10/06/17 06:45 Lipase 108 U/L (23-300) 10/04/17 15:46 Urine Color Yellow (YELLOW) 10/04/17 16:40 Urine Appearance Cloudy (CLEAR) 10/04/17 16:40 Urine pH 6.0 (4.7-8.0) 10/04/17 16:40 Ur Specific [place] 1.025 (1.005-1.035) 10/04/17 16:40 Urine Protein 30 mg/dL (<30 mg/dL) H 10/04/17 16:40 Urine Glucose (UA) Negative mg/dL (NEGATIVE) 10/04/17 16:40 Urine Ketones >=80 mg/dL (NEGATIVE) 10/04/17 16:40 Urine Blood Large (NEGATIVE) H 10/04/17 16:40 Urine Nitrate Negative (NEGATIVE) 10/04/17 16:40 Urine Bilirubin Small (NEGATIVE) H 10/04/17 16:40 Urine Urobilinogen 0.2 E.U./dL (<1 E.U./dL) 10/04/17 16:40 Ur Leukocyte Esterase Trace Charles/uL (NEGATIVE) H 10/04/17 16:40 Urine RBC Tntc /hpf (0-2) 10/04/17 16:40 Urine WBC 5 - 10 /hpf (0-6) 10/04/17 16:40 Ur Epithelial Cells 6 - 8 /hpf (0-5) 10/04/17 16:40 Urine Bacteria Mod (NEG) 10/04/17 16:40 Urine Other Fiber 10/04/17 16:40 Urine HCG, Qual Negative (NEGATIVE) 10/04/17 16:40 Urine Opiates Screen Positive (NEGATIVE) H 10/05/17 13:00 Urine Methadone Screen Negative (NEGATIVE) 10/05/17 13:00 Ur Barbiturates Screen Negative (NEGATIVE) 10/05/17 13:00 Ur Phencyclidine Scrn Negative (NEGATIVE) 10/05/17 13:00 Ur Amphetamines Screen Negative (NEGATIVE) 10/05/17 13:00 U Benzodiazepines Scrn Positive (NEGATIVE) 10/05/17 13:00 U Oth Cocaine Metabols Negative (NEGATIVE) 10/05/17 13:00 U Cannabinoids Screen Positive (NEGATIVE) H 10/05/17 13:00 - Hospital Course Hospital Course: Patient is a 36 year old female with past medical history of bipolar disorder and depression that presented with abdominal pain associated with intractable nausea and nonbilious, nonbloody vomiting. Patient was noted to be hypokalemic on admission and urinalysis showed trace leukocyte esterase. Patient afebrile with no SIRS criteria met. Patient was noted to be hypertensive and started on norvasc during admission. She was also started on reglan, maalox, zofran and protonix for her abdominal pain, nausea and vomiting. GI was consulted. Head CT revealed no acute intracranial abnormalities and CT abdomen/pelvis with IV contrast revealed no apparent pathology to account for symptoms. Endoscopy revealed non-erosive esophagitis with no evidence of bleeding. She was instructed to refrain from marijuana use which may cause nausea/vomiting. Pyschiatry was consulted for management of her bipolar disorder and depression. She was instructed to remain compliant with her medications upon discharge and to follow up with both her primary doctor and psychiatrist within 1 week of discharge. She reported improvement of her symptoms with no further abdominal pain/nausea/vomiting and was agreeable to discharge. Discharge Exam - Head Exam Head Exam: ATRAUMATIC, NORMAL INSPECTION, NORMOCEPHALIC - Eye Exam Eye Exam: EOMI, PERRL - ENT Exam ENT Exam: Mucous Membranes Moist - Respiratory Exam Respiratory Exam: absent: Rales, Rhonchi, Wheezes - Cardiovascular Exam Cardiovascular Exam: RRR, +S1, +S2. absent: Gallop, Rubs - GI/Abdominal Exam GI & Abdominal Exam: Soft. absent: Distended, Firm, Guarding, Rebound, Tenderness - Extremities Exam Extremities exam: normal inspection - Neurological Exam Neurological exam: Alert, CN II-XII Intact, Oriented x3 - Psychiatric Exam Psychiatric exam: Normal Affect, Normal Mood - Skin Skin Exam: Dry, Intact, Normal Color, Warm Discharge Plan - Discharge Medications Prescriptions: cloNIDine [Catapres] 0.1 mg PO Q8H #30 tab Metoclopramide [Reglan] 10 mg PO Q6H #14 tab Ondansetron [Zofran Inj] 4 mg PO Q4H PRN #14 tab PRN Reason: Nausea/Vomiting Pantoprazole [Protonix Inj] 40 mg PO Q12H #30 tab.ec - Follow Up Plan Condition: FAIR Disposition: HOME/ ROUTINE Instructions: Acute Abdomen (Belly Pain), Adult (DC), Nausea and Vomiting, Adult (DC) Additional Instructions: MAY DISCHARGE HOME AFTER CLEARED BY GASTROENTEROLOGY FOLLOW UP PMD AND PSYCHIATRY WITHIN IN 1 WEEK PATIENT TO RESUME ALL MEDS PER HOME MEDS PLUS NEW SCRIPTS PATIENT TO RELEASE ALL RECORDS FROM THIS HOSPITALIZATION TO PMD AND PSYCHIATRY.
[2017-10-06 12:51] VITALS: BP 112/60; PULSE 73
--- NOTE | 2017-10-06 13:49 | CP.PCM.PCO ---
Addendum Addendum: 10/06/17 13:47 prescriptions for the next 2 weeks for her psychotropic medications provided Haldol 10 mg a.m. and at bedtime 2 week supply no refill Cogentin 0.5 mg a.m. and at bedtime 2 weeks supply no refill Xanax 2 mg twice a day 2 week supply no refills Patient has appointment October 20 with her psychiatrist
--- NOTE | 2017-10-06 13:49 | PN ---
DATE: SUBJECTIVE: In short, the patient is a 36-year-old -Congol[place] female with reported history of mood spectrum disorder and psychosis. The patient was admitted on the medical site for abdominal pain, nausea, and vomiting. Initially, the patient was seen yesterday. Please see consultation note for more detailed information. All medications were confirmed by the patient's pharmacy. Please see initial note for more detailed information. Despite the fact that all medications were discussed with the patient, benztropine as well as alprazolam as well as haloperidol, the patient said that she was not taking Haldol overnight. The patient was seen today at the morning time. The patient said that she does not remember if she was on Haldol or not, willing to take medication now. Risks, benefits, and alternatives discussed with the patient. The patient reported that she has followup appointment at [facility] on 10/20/2017 and she will need to have prescription because her followup appointment was scheduled for today and she admits that. The patient reported that she is not depressed, she feels much better. The patient denied thoughts of harming herself or others. The patient does not present to be psychotic, agitated, or depressed. VITAL SIGNS: Stable. Temperature 98.1, pulse is 74, blood pressure 113/62, respirations 15, oxygen saturation is 99. MEDICATIONS: Reviewed. Clonidine, Haldol, hydralazine, Ativan, magnesium oxide, Reglan, Zofran, Protonix, Sonata as needed as well as haloperidol 10 mg morning and at bedtime and Xanax 2 mg twice a day as needed. MENTAL STATUS EXAMINATION: As this signwriter described above, the patient was alert, oriented, pleasant, and cooperative. The patient had endoscopy today. The patient reported that she feels much better. Fair eye contact. Speech was normal rate, tone, quality, and quantity. Mood described "I feel much better." Affect was reactive, mood congruent. Thought process was coherent and goal directed. Thought content, patient denied visual, auditory, or tactile hallucinations. Denied paranoid ideation. The patient denied thoughts of harming herself or others. Denied intent or plan. Insight and judgment seem to be improving. Impulses are well controlled. IMPRESSION: As per history of mood spectrum disorder with psychotic spectrum disorder, but much better. PLAN: Continue current management. Continue current medication. The patient has followup appointment at [facility] with her psychiatrist, Dr. Baer. The patient will require prescriptions up until she will see psychiatrist. Nurse practitioner was advised to give all of the prescription for 2 weeks' supply, no refills. Meanwhile, the patient presented very well. No acute issues. The patient pose no imminent danger to self or others. Should you have any questions, give me a call back. Thank you very much for letting me participate in the care of your patient. This signwriter will sign off. Tanya Shah MD
--- NOTE | 2017-10-07 08:09 | DS ---
FINAL PROGRESS NOTE AND DISCHARGE SUMMARY LOCATION: The patient is seen in room 561, bed 2. HISTORY OF PRESENT ILLNESS: Overnight nurses' notes were reviewed. No adverse events documented overnight. PHYSICAL EXAMINATION: VITAL SIGNS: T-max 98.1; pulse 73; blood pressure 112/60, 140/68, 121/75, 104/68, 125/90. Yesterday, on 10/05/2017, late evening hours, the patient's blood pressure was elevated at 172/134, 175/123, 170/120, but later on over the last 12 hours, the patient's blood pressure has been averaging around 120-110 systolic and diastolic in 70s and 60s. Respirations 18-15, O2 sat 99-100%. GENERAL: The patient was seen lying in the recovery room. The patient was completely awake, alert, responsive, oriented x3. HEENT: Head examination normocephalic, atraumatic. HEENT examination shows pink conjunctivae, anicteric sclerae. No oropharyngeal lesion. No neck rigidity. CHEST: Symmetrical. LUNGS: Shows no rales, crackles or wheezing. CARDIOVASCULAR: S1 and S2. Regular rhythm. Questionable soft systolic murmur, left sternal border, right second intercostal space. ABDOMEN: Soft. Positive bowel sounds. Mild epigastric deep tenderness. No rebound. No tenderness. No guarding. No rigidity. No rebound tenderness. GENITALIA: Female. RECTAL: Deferred. EXTREMITIES: Shows no pitting edema. No calf tenderness. No Homans sign. MUSCULOSKELETAL: Shows a body mass index of 28.1. NEUROLOGICAL: The patient is alert, awake, oriented x3. Cranial nerves II through XII grossly intact. Gait examination is not tested. VASCULAR: Palpable pulses. DIAGNOSTICS: On 10/06/2017, WBC 4.6, hemoglobin and hematocrit 12.6 and 35.3, platelet 244. Sodium 140, potassium 3.6, chloride 105, CO2 of 27, anion gap 11, BUN 5, creatinine 0.8, GFR greater than 60, glucose 92, calcium 9.2, phosphorus 2.6, magnesium 1.7. LFTs are normal. Urine drug screen positive for opiate, positive for cannabinoids, positive for benzos. The patient underwent endoscopy, which shows nonsevere esophagitis without bleeding with retained bilious fluid in the gastric body. The patient was cleared from Gastroenterology. The patient's CT head was reviewed, which was done yesterday. FINAL IMPRESSION, PLAN AND DISCHARGE DIAGNOSES: 1. Nausea and vomiting. 2. Marijuana induced hyperemesis syndrome. 3. Questionable marijuana withdrawal (resolved). 4. Transient uncontrolled hypertension and hypertensive urgency. 5. Lymphocytosis. 6. Hypokalemia. 7. Proteinuria, microscopic hematuria, pyuria, bacteriuria. 8. History of active marijuana abuse. 9. Urine drug screen positive for opiates, benzodiazepines and cannabinoids. 10. Hepatic steatosis and fatty liver. 11. Status post cholecystectomy. 12. Small left adnexal cyst. 13. History of mood spectrum disorder and psychosis. 14. Mood spectrum disorder with psychotic spectrum disorder. 15. History of depression, history of bipolar disorder, history of possible schizophrenia versus schizoaffective disorder. 16. Asymptomatic marijuana-induced hyperemesis syndrome with symptoms of nausea, vomiting and abdominal pain (resolved.). 17. Status post esophagogastroduodenoscopy. 18. Nonsevere esophagitis. 19. Gastric body retained bilious fluid. 20. Hiatal hernia. Plan at this time, the patient was cleared by Gastroenterology, Psychiatry for discharge. The patient was given psychotropic medications for the next [address] Shah including Haldol 10 mg a.m. and at bedtime, Cogentin 0.5 a.m. and at bedtime, Xanax 2 mg twice a day. The patient's other discharge medications; 1. Xanax 2 mg b.i.d. p.r.n. 2. Cogentin 0.5 mg a.m. and at bedtime. 3. Clonidine 0.1 mg every 8 hours. 4. Haldol 10 mg a.m. and at bedtime. 5. Reglan 10 mg p.o. every 6 hours. 6. Zofran 4 mg p.o. every 4 p.r.n. 7. Protonix 40 mg p.o. twice a day. 8. The patient was given Sonata 5 mg at bedtime p.r.n. The patient was discharged home. The patient was advised to follow up primary medical doctor and primary psychiatrist within 1 week. The patient was advised to resume all medications as per home medications plus new scripts. The patient was advised to release all related from this hospitalization to primary medical doctor and the Psychiatry. The patient was counseled about cessation of recreational drug use and marijuana use. The patient was advised strict compliance with medication and diet. The patient was cleared for discharge by Gastroenterology and Psychiatry. Time spent in the entire discharge process more than 45 minutes. Dictated and electronically signed, not read. Dao Altamirano MD
== END 2017-10-06 16:34 | disposition home or self-care (01) | DRG 392 ==
LOC: ED 14:53 → ERH 18:39 → 5RNO 22:43 → OBSVTOIN 10-05 16:31
PROVIDERS: ADMIT Internal Medicine; ATTEND Internal Medicine
PROC: 0DB68ZX Excision of Stomach, Via Natural or Artificial Opening Endoscopic, Diagnostic (ICD-10-PCS; principal; 2017-10-06 11:30)
DX: R10.9 Unspecified abdominal pain (principal); N39.0 Urinary tract infection, site not specified; R11.2 Nausea with vomiting, unspecified; K29.50 Unspecified chronic gastritis without bleeding; F12.90 Cannabis use, unspecified, uncomplicated; F25.9 Schizoaffective disorder, unspecified; F31.9 Bipolar disorder, unspecified; D72.820 Lymphocytosis (symptomatic); E87.6 Hypokalemia; I10 Essential (primary) hypertension; I16.0 Hypertensive urgency; K20.9 Esophagitis, unspecified; K44.9 Diaphragmatic hernia without obstruction or gangrene; K76.0 Fatty (change of) liver, not elsewhere classified; R31.29 Other microscopic hematuria; Z79.899 Other long term (current) drug therapy; Z90.49 Acquired absence of other specified parts of digestive tract; Z91.14 Patient's other noncompliance with medication regimen; N94.89 Other specified conditions associated with female genital organs and menstrual cycle

== ENCOUNTER 2018-05-13 07:33 | Emergency (ER) | payer MEDICARE, MEDICAID ==
[2018-05-13 07:37] VITALS: BMI 30.4
[2018-05-13 07:47] VITALS: RESP 18
[2018-05-13 08:06] LABS: URINE BILIRUBIN NEGATIVE (NEGATIVE); URINE BLOOD NEGATIVE (NEGATIVE); URINE GLUCOSE (UA) NEGATIVE (NEGATIVE); URINE LEUKOCYTE ESTERASE TRACE Leu/uL (NEGATIVE); URINE PROTEIN TRACE mg/dL (<30 mg/dL); URINE UROBILINOGEN 0.2 E.U./dL (<1 E.U./dL)
[2018-05-13] MEDS ORDERED: Sodium Chloride 0.9% 1,000 ML IV STA (08:06)
[2018-05-13 08:07] LABS: URINE APPEARANCE SL CLOUDY (CLEAR); URINE COLOR YELLOW (YELLOW)
[2018-05-13] MEDS ORDERED: Atrop/Hyosc/Scopal/PB Elixir (120 ml) PO STA (08:07)
[2018-05-13] MEDS ORDERED: Alum-Mag Hydrox-Simethicone Susp (30 mL) PO STA (08:07)
[2018-05-13 08:09] LABS: HCG,QUALITATIVE URINE NEGATIVE (NEGATIVE)
--- NOTE | 2018-05-13 08:17 | ED PDOC ---
Arrival/HPI - General Historian: Patient - History of Present Illness Narrative History of Present Illness (Text): 05/13/18 07:48 37 y/o F, with past medical history of cholecystectomy, presents to the Emergency department complaining of nausea, vomiting, diarrhea and abdominal p ain since 1 week. Patient states sick contact at home with family members whose symptoms have resolved. However, for patient, the symptoms have been unchanged since onset prompting her to present to the ED for medical evaluation. Patient reports using home remedies including soup and roman water with no improvement to symptoms. Patient states recent antibiotics, penicillin use, s/p extrication of her wisdom tooth. As per patient, her last bowel movement was yesterday morning and her LNMP was 2 weeks ago. Patient reports taking a test at home, which was negative. Additionally, patient informs having painful sexual intercourse with her 2 weeks ago, and requests to be medically evaluated for gonorrhea/chlamydia. Patient denies any abnormal vaginal discharge, vaginal bleeding, dysuria or any urinary symptoms since the intercourse. Patient denies any other somatic complaints. Patient informs intermittent chills but denies any fever, chest pain, shortness of breath, neck pain, back pain, hematemesis, hematochezia, headache, dizziness, rash or any other complaints. Patient denies any history of alcohol abuse. Time/Duration: 1 week Symptom Onset: Gradual Symptom Course: Unchanged Quality: Aching Activities at Onset: Light Context: Home <Tex Sumner - Last Filed: 05/13/18 09:16> <Maureen Walker - Last Filed: 05/15/18 17:16> - General Chief Complaint: Abdominal Pain Time Seen by Provider: 05/13/18 07:34 Past Medical History - Provider Review Nursing Documentation Reviewed: Yes - Infectious Disease Hx of Infectious Diseases: None - Cardiac Hx Cardiac Disorders: No - Pulmonary Hx Respiratory Disorders: No - Neurological Hx Neurological Disorder: No - HEENT Hx HEENT Disorder: No - Renal Hx Renal Disorder: No - Endocrine/Metabolic Hx Endocrine Disorders: No - Hematological/Oncological Hx Blood Transfusions: Yes Hx Blood Transfusion Reaction: No - Integumentary Hx Dermatological Disorder: No - Musculoskeletal/Rheumatological Hx Musculoskeletal Disorders: No Hx Falls: No - Gastrointestinal Hx Gastrointestinal Disorders: No - Genitourinary/Gynecological Hx Genitourinary Disorders: No - Psychiatric Hx Psychophysiologic Disorder: Yes Hx Anxiety: Yes Hx Depression: Yes Hx Substance Use: No - Surgical History Hx Cholecystectomy: Yes (2003) - Anesthesia Hx Anesthesia Reactions: No Hx Malignant Hyperthermia: No - Suicidal Assessment Feels Threatened In Home Enviroment: No <JorgeompLonny waltersyl - Last Filed: 05/13/18 09:16> Family/Social History - Physician Review Nursing Documentation Reviewed: Yes Family/Social History: Unknown Family HX Smoking Status: Current Some Days Smoker Hx Alcohol Use: No Hx Substance Use: No <Bosompem,Tex - Last Filed: 05/13/18 09:16> Allergies/Home Meds <Bosompem,Tex - Last Filed: 05/13/18 09:16> <Maureen Walker - Last Filed: 05/15/18 17:16> Allergies/Adverse Reactions: Allergies No Known Allergies Allergy (Verified 05/13/18 08:49) Review of Systems - Physician Review All systems were reviewed & negative as marked: Yes - Review of Systems Constitutional: absent: Fevers Eyes: absent: Vision Changes Respiratory: absent: SOB, Cough Cardiovascular: absent: Chest Pain Gastrointestinal: Abdominal Pain, Diarrhea, Nausea, Vomiting. absent: Hematochezia, Hematemesis Genitourinary Female: absent: Dysuria, Hematuria, Urine Output Changes, Vaginal Bleeding, Vaginal Discharge Musculoskeletal: absent: Back Pain, Neck Pain Skin: absent: Rash Neurological: absent: Headache, Dizziness Psychiatric: absent: Anxiety <Lonny Sumneryl - Last Filed: 05/13/18 09:16> Physical Exam Vital Signs Reviewed: Yes Vital Signs Temp Pulse Resp BP Pulse Ox 05/13/18 07:33 98.4 F 55 L 18 139/82 100 Temperature: Afebrile Blood Pressure: Normal Pulse: Bradycardic Respiratory Rate: Normal Appearance: Positive for: Well-Appearing, Non-Toxic, Comfortable Pain Distress: None Mental Status: Positive for: Alert and Oriented X 3 - Systems Exam Head: Present: Atraumatic, Normocephalic Pupils: Present: PERRL Extroacular Muscles: Present: EOMI Conjunctiva: Present: Normal Respiratory/Chest: Present: Clear to Auscultation, Good Air Exchange. No: Respiratory Distress, Accessory Muscle Use Cardiovascular: Present: Regular Rate and Rhythm, Normal S1, S2. No: Murmurs Abdomen: Present: Tenderness (mild suprapubic tenderness). No: Distention, Peritoneal Signs Back: Present: Normal Inspection Upper Extremity: Present: Normal Inspection. No: Cyanosis, Edema Lower Extremity: Present: Normal Inspection. No: Edema Neurological: Present: GCS=15, CN II-XII Intact, Speech Normal Skin: Present: Warm, Dry, Normal Color. No: Rashes Psychiatric: Present: Alert, Oriented x 3, Normal Insight, Normal Concentration <Tex Sumner - Last Filed: 05/13/18 09:16> Vital Signs Temp Pulse Resp BP Pulse Ox 05/13/18 10:00 98 F 58 L 18 136/86 98 05/13/18 07:33 98.4 F 55 L 18 139/82 100 <Maureen Walker - Last Filed: 05/15/18 17:16> Medical Decision Making ED Course and Treatment: 05/13/18 07:48 Impression: 37 year old female presents to the Emergency department complaining of nausea, vomiting, diarrhea and abdominal pain. Differential Diagnosis included but are not limited to: C-diff Colitis Pancreatitis Gastritis Plan: -- Labs -- Chlamydia/ GC -- Maalox -- Reglan -- IV Fluids -- Toradol -- Atropine -- C-diff toxin and antigen -- Urine Culture -- Urinalysis, HCG -- Reassess and disposition Prior Visits: Notes and results from previous visits were reviewed. Progress Notes: 05/13/18 09:16 Labs reviewed with no leukocytosis noted. Slight anemia noted which patient was informed of. UA reveals trace leukocytes and many bacteria. Keflex given. Pending chemistries. <Tex Sumner - Last Filed: 05/13/18 09:16> ED Course and Treatment: 05/15/18 17:16 Patient tested negative for gonorrhea and chlamydia. Spoke with patient on the phone to give results. - Lab Interpretations Microbiology Results: Microbiology Results 05/13/18 09:30 Urine,Clean Catch Urine Culture - Final No Growth (<1,000 CFU/ML) Lab Results: 05/13/18 08:30 05/13/18 08:30 Lab Results 05/13/18 10:00: C.trachomatis RNA (TMA) Not detected, N.gonorrhoeae RNA (TMA) Not detected 05/13/18 08:30: Sodium 140, Potassium 3.7, Chloride 109 H, Carbon Dioxide 24, Anion Gap 11, BUN 10, Creatinine 0.7, Est GFR ( Amer) > 60, Est GFR (Non- Af Amer) > 60, Random Glucose 94, Calcium 8.7, Total Bilirubin 0.6, AST 25, ALT 24, Alkaline Phosphatase 61, Total Protein 7.4, Albumin 3.8, Globulin 3.7, Albumin/Globulin Ratio 1.0 L, Lipase 73 05/13/18 08:30: WBC 3.2 L, RBC 3.82, Hgb 11.8 L, Hct 34.4 L, MCV 90.1, MCH 30.9, MCHC 34.3, RDW 12.1, Plt Count 259, MPV 9.5, Gran % 31.8 L, Lymph % (Auto) 58.3 H, [place] % (Auto) 9.0 H, Eos % (Auto) 0.6 L, Baso % (Auto) 0.3, Gran # 1.03 L, Lymph # (Auto) 1.9, [place] # (Auto) 0.3, Eos # (Auto) 0.0, Baso # (Auto) 0.01 05/13/18 07:51: Urine Color Yellow, Urine Appearance Sl cloudy, Urine pH 6.0, Ur Specific [place] 1.025, Urine Protein Trace H, Urine Glucose (UA) Negative, Urine Ketones Negative, Urine Blood Negative, Urine Nitrate Negative, Urine Bilirubin Negative, Urine Urobilinogen 0.2, Ur Leukocyte Esterase Trace H, Urine RBC 0 - 2, Urine WBC 2 - 5, Ur Epithelial Cells 6 - 8, Urine Bacteria Many, Urine Other Uyeast, Urine HCG, Qual Negative - Medication Orders Current Medication Orders: Discontinued Medications Al Hydrox/Mg Hydrox/Simethicone (Maalox Plus 30 Ml) 30 ml PO STAT STA Stop: 05/13/18 08:08 Last Admin: 05/13/18 08:29 Dose: 30 ml Belladonna/Phenobarbital ( Elixir) 5 ml PO STAT STA Stop: 05/13/18 08:08 Last Admin: 05/13/18 08:32 Dose: 5 ml Cephalexin Monohydrate (Keflex) 500 mg PO STAT STA; Protocol Stop: 05/13/18 08:53 Last Admin: 05/13/18 09:05 Dose: 500 mg Metoclopramide HCl 10 mg/ (Sodium Chloride) 52 mls @ 200 mls/hr IV STAT STA Stop: 05/13/18 08:21 Last Admin: 05/13/18 08:47 Dose: 200 mls/hr eMAR Start Stop Document 05/13/18 08:47 SRE (Rec: 05/13/18 08:48 SRE [id number]) Intravenous Solution Start Date 05/13/18 Start Time 08:48 End Date 05/13/18 End time 09:40 Total Infusion Time 52 Sodium Chloride (Sodium Chloride 0.9%) 1,000 mls @ 999 mls/hr IV .Q1H1M STA Stop: 05/13/18 09:06 Last Admin: 05/13/18 08:27 Dose: 999 mls/hr eMAR Start Stop Document 05/13/18 08:27 SRE (Rec: 05/13/18 08:28 SRE [id number]) Intravenous Solution Start Date 05/13/18 Start Time 08:28 End Date 05/13/18 End time 09:30 Total Infusion Time 62 Ketorolac Tromethamine (Toradol) 30 mg IVP STAT STA Stop: 05/13/18 08:08 Last Admin: 05/13/18 08:28 Dose: 30 mg MAR Pain Assessment Document 05/13/18 08:28 SRE (Rec: 05/13/18 08:28 SRE [id number]) Pain Reassessment Is this a pain reassessment? Yes Sleep Is patient sleeping during reassessment? No Presence of Pain Presence of Pain Yes Pain Scale Used Protocol: PSCALES Pain Scale Used Numeric Location Pain Location Body Site Abdomen Description Description Intermittent IVP Administration Document 05/13/18 08:28 SRE (Rec: 05/13/18 08:28 SRE [id number]) Charges for Administration # of IVP Administrations 1 <Maureen Walker - Last Filed: 05/15/18 17:16> - Scribe Statement The provider has reviewed the documentation as recorded by the Scribe Lilia Penny. All medical record entries made by the Scribe were at my direction and personally dictated by me. I have reviewed the chart and agree that the record accurately reflects my personal performance of the history, physical exam, medical decision making, and the department course for this patient. I have also personally directed, reviewed, and agree with the discharge instructions and disposition. <Tex Sumner - Last Filed: 05/13/18 09:16> Disposition/Present on Arrival - Present on Arrival Any Indicators Present on Arrival: No History of DVT/PE: No History of Uncontrolled Diabetes: No Urinary Catheter: No History of Decub. Ulcer: No History Surgical Site Infection Following: None - Disposition Have Diagnosis and Disposition been Completed?: Yes Disposition Time: 09:19 Patient Plan: Discharge <Tex Sumner - Last Filed: 05/13/18 09:16> <Maureen Walker - Last Filed: 05/15/18 17:16> - Disposition Diagnosis: Gastroenteritis Disposition: HOME/ ROUTINE Discharge Instructions (ExitCare): Gastroenteritis (ED) Print Language: BELARUSIAN Additional Instructions: All medical record entries made by the Scribe were at my direction and personally dictated by me. I have reviewed the chart and agree that the record accurately reflects my personal performance of the history, physical exam, medical decision making, and the department course for this patient. I have also personally directed, reviewed, and agree with the discharge instructions and disposition. Prescriptions: Cephalexin [cephalexin] 500 mg PO DAILY 5 Days #10 cap Terbinafine HCl 250 mg PO DAILY #70 tablet Referrals: Lashell Stout MD [Staff Provider] - Follow up with primary Amie Meek MD [Medical Doctor] - Follow up with primary [facility] [Outside] - Follow up with primary Forms: [employer] (Danish)
[2018-05-13 08:18] LABS: URINE RBC 0 - 2 /hpf (0-2)
[2018-05-13 08:19] LABS: URINE BACTERIA MANY (NEG)
[2018-05-13 08:48] LABS: BASO # 0.01 K/mm3 (0.0-2.0); BASO % 0.3 % (0.0-3.0); EOS % 0.6 % (1.5-5.0); GRAN # 1.03 (1.4-6.5); GRAN % 31.8 % (50.0-68.0); HEMOGLOBIN 11.8 g/dL (12.0-16.0); LYMPH # 1.9 (1.2-3.4); LYMPH % 58.3 % (22.0-35.0); MEAN CELL VOLUME 90.1 fl (80.0-105.0); MEAN CORPUSCULAR HEMOGLOBIN 30.9 pg (25.0-35.0); MEAN CORPUSCULAR HGB CONC 34.3 g/dl (31.0-37.0); MEAN PLATELET VOLUME 9.5 fl (7.0-11.0); MONO # 0.3 (0.1-0.6); RBC 3.82 10^6/uL (3.5-6.1); RED CELL DISTRIBUTION WIDTH 12.1 % (11.5-14.5); WHITE BLOOD COUNT 3.2 10^3/uL (4.5-11.0)
[2018-05-13 09:20] LABS: ALBUMIN 3.8 g/dL (3.0-4.8); ALT/SGPT 24 U/L (7-56); AST/SGOT 25 U/L (14-36); BLOOD UREA NITROGEN 10 mg/dL (7-21); CALCIUM 8.7 mg/dL (8.4-10.5); GFR NON-AFRICAN AMERICAN > 60; LIPASE 73 U/L (23-300)
[2018-05-13 10:01] VITALS: BP 136/86; PULSE 58; TEMP 98; O2SAT 98
== END 2018-05-13 10:01 | disposition home or self-care (01) ==
LOC: ED 07:33
DX: K52.9 Noninfective gastroenteritis and colitis, unspecified (principal)
CPT/HCPCS: 80053; 81001; 83690; 84703; 85025; 87086; 87491; 87591; 96365; 96375; 99284; J1885; J2765; J7030